=== PATIENT | female | born 1965 | race Caucasian/White ===

== ENCOUNTER → 2024-08-03 06:33 | Day surgery (SDC) | payer BC, SELFPAY | LOC: GI 06:33 | PROVIDERS: ATTENDING PHYSICIAN Internal Medicine Gastroenterology | DX: K51.00 Ulcerative (chronic) pancolitis without complications (principal); D12.6 Benign neoplasm of colon, unspecified; K63.89 Other specified diseases of intestine; K62.89 Other specified diseases of anus and rectum; K62.4 Stenosis of anus and rectum; R93.3 Abnormal findings on diagnostic imaging of other parts of digestive tract | CPT/HCPCS: 45385; 45380; 88305 ==